=== PATIENT | female | born 1940 | race Caucasian/White ===

== ENCOUNTER 2020-12-12 06:02 | Day surgery (SDC) | payer OTHER ==
[~2020-12-12] VITALS: Ht 158.8 cm; Wt 76.3 kg
[2020-12-12] MEDS ORDERED: BENZOCAINE 20% 50 MCG/SPRAY 57 GM TP ONE (06:03)
[2020-12-12] MEDS ORDERED: LIDOCAINE 2% 30 ML JELLY TP ONE (06:03)
[2020-12-12] MEDS ORDERED: ALBUTEROL SULFATE 2.5 MG/0.5 ML NEB SOLUTION NEB ONE (06:03)
[2020-12-12] MEDS ORDERED: SODIUM CHLORIDE 0.9% 1,000 ML ONE (06:33)
[2020-12-12] MEDS ORDERED: SODIUM CHLORIDE 0.9% 1,000 ML IV ONE (07:00)
[2020-12-12] MEDS ORDERED: APIX5TAB PO (07:17)
[2020-12-12] MEDS ORDERED: BECL10.62 IH (07:17)
[2020-12-12] MEDS ORDERED: PANT-31 PO (07:17)
[2020-12-12] MEDS ORDERED: MELA5TAB40 PO (07:17)
[2020-12-12] MEDS ORDERED: MONT-35 PO (07:17)
[2020-12-12] MEDS ORDERED: TRAZ-252 PO (07:17)
[2020-12-12] MEDS ORDERED: DILT240C46 PO (07:17)
[2020-12-12] MEDS ORDERED: GABA-1181 PO (07:17)
[2020-12-12] MEDS ORDERED: FLUT16H NASAL (07:17)
[2020-12-12] MEDS ORDERED: CHOL200016 PO (07:17)
[2020-12-12] MEDS ORDERED: BUPR-93 PO (07:17)
[2020-12-12] MEDS ORDERED: PRED10 PO (07:17)
[2020-12-12] MEDS ORDERED: LOSA50TA37 PO (07:17)
[2020-12-12] MEDS ORDERED: BUDE10.7 IH (07:18)
[2020-12-12] MEDS ORDERED: FentaNYL CITRATE PF 100 MCG/2 ML VIAL ONE (07:41)
[2020-12-12] MEDS ORDERED: MIDAZOLAM HCL 5 MG/ML VIAL ONE (07:42)
[2020-12-12] MEDS ORDERED: MethylPREDNISolone SOD SUCC 125 MG/2 ML VIAL ONE (08:59)
[2020-12-12] MEDS ORDERED: MethylPREDNISolone SOD SUCC 125 MG/2 ML VIAL IVP ONE (09:00)
[2020-12-12] MEDS ORDERED: OXYGEN THERAPY IH SCH (20:00)
== END 2020-12-12 10:50 | disposition home or self-care (01) ==
LOC: SURGERY 06:02
PROVIDERS: ATTEND Internal Medicine Critical Care Medicine
DX: J38.4 Edema of larynx (principal); I10 Essential (primary) hypertension; B37.0 Candidal stomatitis; Z79.899 Other long term (current) drug therapy; Z98.890 Other specified postprocedural states; Z90.49 Acquired absence of other specified parts of digestive tract; Z90.710 Acquired absence of both cervix and uterus
CPT/HCPCS: 31623; 31624; 71045; 87015; 87070; 87077; 87101; 87205; 87206; 87220; 88108; 88184; 88185; 88312; J2250; J2930; J3010; J7030; J7613

== ENCOUNTER 2022-12-10 15:03 | Inpatient (IN) | payer OTHER ==
[~2022-12-10] VITALS: Ht 154.9 cm; Wt 65.8 kg
[~2022-12-10 15:03] MED LIST: APIX5TAB PO; BECL10.62 IH; BUDE10.7 IH; BUPR-50 PO; CHOL200059 PO; DILT240C46 PO; FLUT16SP NASAL; GABA-1181 PO; LOSA-382 PO; MELA5TAB40 PO; MONT-35 PO; PANT-31 PO; PRED-729 PO; TRAZ-252 PO
[2022-12-10 15:43] LABS: BASOPHILS % (AUTO) 0.3 % (0.0-2.0); EOSINOPHILS % (AUTO) 0.6 % (1.0-6.0); HEMATOCRIT 40.2 % (36-46); HEMOGLOBIN 13.5 g/dL (12.0-16.0); LYMPHOCYTES # (AUTO) 0.7 K/uL (1.0-4.8); LYMPHOCYTES % (AUTO) 12.3 % (22.0-44.0); MEAN CORPUSCULAR HEMOGLOBIN 31.9 pg (26.0-34.0); MEAN CORPUSCULAR HGB CONC 33.5 G/dL (31.0-37.0); MEAN CORPUSCULAR VOLUME 95 fL (80-100); MONOCYTES # (AUTO) 0.7 K/uL (0.1-1.0); MONOCYTES % (AUTO) 11.5 % (2.0-9.0); NEUTROPHILS # (AUTO) 4.4 K/uL (1.8-7.7); NEUTROPHILS % (AUTO) 75.3 % (40.0-70.0); PLATELET COUNT (AUTO) 205 K/uL (150-450); RED BLOOD CELL COUNT(AUTO) 4.22 MIL/uL (4.00-5.20); RED CELL DISTRIBUTION WIDTH 14.4 % (11.5-14.5); WHITE BLOOD COUNT (AUTO) 5.9 K/uL (4.5-11.0)
[2022-12-10 15:51] LABS: CALCIUM, TOTAL 9.2 mg/dL (8.8-10.5); CREATININE 0.9 mg/dL (0.60-1.30); POTASSIUM 3.8 mmol/L (3.5-5.1)
[2022-12-10 15:57] LABS: BILIRUBIN,TOTAL 0.3 mg/dL (0.1-1.0); TOTAL PROTEIN, SERUM 6.4 g/dL (6.4-8.2)
[2022-12-10 15:59] LABS: LACTIC ACID 1.5 mmol/L (0.4-2.0); TROPONIN I-HIGH SENSITIVITY 8 ng/L (<51)
[2022-12-10] MEDS ORDERED: SODIUM CHLORIDE 0.9% 1,000 ML IV ONE (16:00)
[2022-12-10] MEDS ORDERED: ONDANSETRON HCL 4 MG/2 ML VIAL IVP ONE (16:00)
[2022-12-10 16:13] LABS: APPEARANCE,URINE CLEAR (CLEAR); BILIRUBIN,URINE NEGATIVE (NEGATIVE); COLOR,URINE LIGHT YELLOW (YELLOW); GLUCOSE, URINE (UA) NEGATIVE (NEGATIVE); KETONES,URINE NEGATIVE (NEGATIVE); LEUKOCYTE ESTERASE ,URINE NEGATIVE (NEGATIVE); NITRATE,URINE NEGATIVE (NEGATIVE); OCCULT BLOOD,URINE NEGATIVE (NEGATIVE); PROTEIN,URINE NEGATIVE (NEGATIVE); SPECIFIC GRAVITIY, URINE 1.013 (1.003-1.030); UROBILINOGEN,URINE <=1.0 mg/dL (<=1.0)
[2022-12-10 16:20] LABS: BACTERIA,URINE Rare /HPF (None Seen); RBC,URINE 0-2 /HPF (0-2); SQUAMOUS EPITHELIAL CELL,UR Moderate /LPF (None Seen); WBC,URINE 0-2 /HPF (0-5)
[2022-12-10] MEDS ORDERED: ONDANSETRON HCL 4 MG/2 ML VIAL IVP PRN (18:45)
[2022-12-10] MEDS ORDERED: SODIUM CHLORIDE 0.9% 250 ML IV PRN (18:45)
[2022-12-10] MEDS ORDERED: MELATONIN 5 MG TABLET PO PRN (18:45)
[2022-12-10] MEDS ORDERED: TraZODone HCL 50 MG TABLET PO PRN (18:45)
[2022-12-10] MEDS ORDERED: ACETAMINOPHEN 325 MG TABLET PO PRN (18:45)
[2022-12-10 19:27] LABS: COVID AG,FIA SOURCE NASAL SWAB
[2022-12-10 19:45] LABS: SARS-COV2 (COVID) ANTIGEN,FIA Negative (Negative)
[2022-12-10 21:37] VITALS: BP 135/61; PULSE 70; RESP 18; TEMP 98.1
[2022-12-10] MEDS: APIXABAN 5 MG TABLET PO SCH (21:53)
[2022-12-10] MEDS: GABAPENTIN 300 MG CAPSULE PO SCH (21:54)
[2022-12-10] MEDS: DOCUSATE SODIUM 100 MG CAPSULE PO SCH (21:54)
[2022-12-10 22:41] LABS: TROPONIN I-HIGH SENSITIVITY 8 ng/L (<51)
[2022-12-11] MEDS ORDERED: HEPARIN SODIUM,PORCINE 5,000 UNITS/ML VIAL SQ SCH
[2022-12-11 00:42] VITALS: BP 124/63; PULSE 72; RESP 18; TEMP 98.4
[2022-12-11 05:07] VITALS: BP 153/69; PULSE 70; RESP 18; TEMP 98.1
[2022-12-11] MEDS: PANTOPRAZOLE SODIUM 40 MG DR TABLET PO SCH (05:54)
[2022-12-11 06:35] LABS: BASOPHILS % (AUTO) 0.3 % (0.0-2.0); EOSINOPHILS % (AUTO) 1.8 % (1.0-6.0); HEMATOCRIT 41.2 % (36-46); HEMOGLOBIN 13.8 g/dL (12.0-16.0); LYMPHOCYTES # (AUTO) 1.1 K/uL (1.0-4.8); LYMPHOCYTES % (AUTO) 25.4 % (22.0-44.0); MEAN CORPUSCULAR HEMOGLOBIN 32.1 pg (26.0-34.0); MEAN CORPUSCULAR HGB CONC 33.5 G/dL (31.0-37.0); MEAN CORPUSCULAR VOLUME 96 fL (80-100); MONOCYTES # (AUTO) 0.5 K/uL (0.1-1.0); NEUTROPHILS # (AUTO) 2.6 K/uL (1.8-7.7); NEUTROPHILS % (AUTO) 60.5 % (40.0-70.0); PLATELET COUNT (AUTO) 207 K/uL (150-450); RED CELL DISTRIBUTION WIDTH 14.2 % (11.5-14.5); WHITE BLOOD COUNT (AUTO) 4.3 K/uL (4.5-11.0)
[2022-12-11] MEDS ORDERED: INFLUENZA VIRUS VACCINE QVS 2023-24 (6MO+)/PF 60 MCG/0.5 ML SYRINGE IM. ONE (07:00)
[2022-12-11 07:01] LABS: ANION GAP 8 mmol/L (8-16); CALCIUM, TOTAL 9.4 mg/dL (8.8-10.5); CARBON DIOXIDE 28 mmol/L (22-29); CHLORIDE 106 mmol/L (98-107); GLOMERULAR FILTR. RATE CALC > 60 mL/min (>60); GLUCOSE,RANDOM 90 mg/dL (70-110); POTASSIUM 4.5 mmol/L (3.5-5.1); SODIUM SERUM 142 mmol/L (136-145); TROPONIN I-HIGH SENSITIVITY 9 ng/L (<51); UREA NITROGEN, BLOOD 15 mg/dL (7-18)
[2022-12-11 07:35] VITALS: BP 144/71; PULSE 67; RESP 18; TEMP 98.5
[2022-12-11] MEDS: FLUTICASONE PROPIONATE 50 MCG/SPRAY 16 GM NASAL SPRAY NASAL SCH (08:06)
[2022-12-11] MEDS: BECLOMETHASONE DIPR HFA 80 MCG/PUFF 10.6 GM INHALER IH SCH ×2 (08:07→20:19)
[2022-12-11] MEDS: BuPROPion HCL XL 150 MG ER TABLET PO SCH (08:08)
[2022-12-11] MEDS: GABAPENTIN 300 MG CAPSULE PO SCH ×3 (08:09→20:18)
[2022-12-11] MEDS: MONTELUKAST SODIUM 10 MG TABLET PO SCH (08:09)
[2022-12-11] MEDS: DOCUSATE SODIUM 100 MG CAPSULE PO SCH ×2 (08:09→20:18)
[2022-12-11] MEDS: PredniSONE 10 MG TABLET PO SCH (08:09)
[2022-12-11] MEDS: APIXABAN 5 MG TABLET PO SCH ×2 (08:10→20:18)
[2022-12-11] MEDS: LOSARTAN POTASSIUM 50 MG TABLET PO SCH (08:25)
[2022-12-11] MEDS: CHOLECALCIFEROL (VIT D3) 2,000 UNITS [50 MCG] TABLET PO SCH (08:25)
[2022-12-11] MEDS: FLUCONAZOLE 100 MG TABLET PO SCH (09:50)
[2022-12-11 11:45] VITALS: BP 140/77; PULSE 81; RESP 20; TEMP 97.7
[2022-12-11 15:40] VITALS: BP 127/73; PULSE 79; RESP 18; TEMP 98.5
[2022-12-11] MEDS ORDERED: DEXTROSE 5%-0.45% SODIUM CHL 1,000 ML IV ONE (17:00)
[2022-12-11 19:45] VITALS: BP 153/81; PULSE 82; RESP 18; TEMP 98.6
[2022-12-12 00:13] VITALS: BP 142/76; PULSE 73; RESP 18; TEMP 98.3
[2022-12-12 05:09] VITALS: BP 146/74; PULSE 70; RESP 18; TEMP 98.3
[2022-12-12] MEDS: PANTOPRAZOLE SODIUM 40 MG DR TABLET PO SCH (06:20)
[2022-12-12 07:47] VITALS: BP 139/72; PULSE 77; RESP 18; TEMP 98.7
[2022-12-12] MEDS: BuPROPion HCL XL 150 MG ER TABLET PO SCH (09:07)
[2022-12-12] MEDS: APIXABAN 5 MG TABLET PO SCH (09:07)
[2022-12-12] MEDS: MONTELUKAST SODIUM 10 MG TABLET PO SCH (09:07)
[2022-12-12] MEDS: LOSARTAN POTASSIUM 50 MG TABLET PO SCH (09:07)
[2022-12-12] MEDS: PredniSONE 10 MG TABLET PO SCH (09:07)
[2022-12-12] MEDS: GABAPENTIN 300 MG CAPSULE PO SCH ×2 (09:07→16:00)
[2022-12-12] MEDS: DOCUSATE SODIUM 100 MG CAPSULE PO SCH (09:07)
[2022-12-12] MEDS: CHOLECALCIFEROL (VIT D3) 2,000 UNITS [50 MCG] TABLET PO SCH (09:07)
[2022-12-12] MEDS: FLUCONAZOLE 100 MG TABLET PO SCH (09:07)
[2022-12-12] MEDS: FLUTICASONE PROPIONATE 50 MCG/SPRAY 16 GM NASAL SPRAY NASAL SCH (09:08)
[2022-12-12] MEDS: BECLOMETHASONE DIPR HFA 80 MCG/PUFF 10.6 GM INHALER IH SCH (09:09)
[2022-12-12 11:47] VITALS: BP_SYST 139; BP_SYST 147; BP_SYST 150; BP_DIAS 78; BP_DIAS 82; BP_DIAS 84; PULSE 86; RESP 18; TEMP 98.8
[2022-12-12 14:56] VITALS: BP 125/69; PULSE 93; RESP 18; TEMP 98.6
[2022-12-12] MEDS ORDERED: FLUC100T68 PO (15:58)
== END 2022-12-12 18:53 | disposition home or self-care (01) | DRG 641 ==
LOC: EMS 15:03 → 5S 18:30
PROVIDERS: ADMIT Internal Medicine; ATTEND Internal Medicine
DX: E86.0 Dehydration (principal); B37.81 Candidal esophagitis; D84.9 Immunodeficiency, unspecified; J84.10 Pulmonary fibrosis, unspecified; I48.0 Paroxysmal atrial fibrillation; R07.89 Other chest pain; F41.9 Anxiety disorder, unspecified; Z20.822 Contact with and (suspected) exposure to COVID-19; I35.0 Nonrheumatic aortic (valve) stenosis; I10 Essential (primary) hypertension; I48.91 Unspecified atrial fibrillation; Z87.891 Personal history of nicotine dependence; Z88.0 Allergy status to penicillin; Z90.49 Acquired absence of other specified parts of digestive tract; Z90.710 Acquired absence of both cervix and uterus; Z90.79 Acquired absence of other genital organ(s); Z90.722 Acquired absence of ovaries, bilateral; Z79.899 Other long term (current) drug therapy
CPT/HCPCS: 70450; 71045; 80048; 80053; 81001; 83605; 83690; 83735; 83880; 84484; 85025; 90686; 93005; 93306; 97116; 97162; 99285; J2405; J3535; J7030; 36415-L1; 36415-TC; G0008; J7512; Z7610